=== PATIENT | female | born 1990 | race Caucasian/White ===

== ENCOUNTER 2017-05-05 00:12 | Emergency (ER) | payer MEDICAID ==
[~2017-05-05] VITALS: Ht 149.9 cm; Wt 39.0 kg
[~2017-05-05 00:12] MED LIST: AZAT50 PO; CIPR500T4 PO; ELOC0.1O TOP; HYDR200T42 PO; PRED10 PO; PRED5TAB PO; ROBA750T3 PO; VENTAER INH
[2017-05-05 00:20] VITALS: BP 129/77; PULSE 84; RESP 16; TEMP 97.9; O2SAT 98
[2017-05-05] MEDS ORDERED: PLAQ200T PO (00:42)
[2017-05-05] MEDS ORDERED: PRED10 PO (00:42)
[2017-05-05] MEDS ORDERED: AZAT50 PO (00:42)
--- NOTE | 2017-05-05 01:03 | PD ---
HPI Chief Complaint: Injury Time Seen by Provider: 00:48 Travel History International Travel<30 days: No Contact w/Intl Traveler<30days: No Traveled to known affect area: No History of Present Illness HPI 26yo F with discoid lupus here with c/o right second digit pain for about 2 days. States she gets cellulitis very often. Denies any fever, chest pain, sob , n/v, abdominal pain, focal weakness or numbness. States she has history of MRSA. She currently does not have a manager child in the area but has a final rail cutter and primary care physician. Denies any trauma. PFSH Past Medical History Asthma: No Autoimmune Disease: Yes Blood Disorders: No Anxiety: No Depression: No Cardiovascular Problems: No Chest Pain: No Diminished Hearing: No Endocrine: No Gastrointestinal Disorders: No Genitourinary: No Immune Disorder: Yes Musculoskeletal: No Neurologic: No Psychiatric: No Reproductive: Yes (never has had period) Respiratory: Yes (on occassion) Immunizations Current: No Sleep Apnea: No ?: Not Past Surgical History Abdominal Surgery: No Cardiac Surgery: No Ear Surgery: No Endocrine Surgery: No Eye Surgery: No Genitourinary Surgery: No Gynecologic Surgery: No Neurologic Surgery: No Oral Surgery: No Thoracic Surgery: No Social History Alcohol Use: Yes Tobacco Use: No Substance Use: No Allergies-Medications (Allergen,Severity, Reaction): Coded Allergies: sulfamethoxazole (Unverified Allergy, Intermediate, HEADACHE ITCHING, 03/06) trimethoprim (Unverified Allergy, Intermediate, HEADACHE ITCHING, 03/06/17) Reported Meds & Prescriptions Reported Meds & Active Scripts Active Lortab (Hydrocodone-Acetaminophen) 5-325 Mg Tab 1 Tab PO Q6H PRN Clindamycin (Clindamycin HCl) 300 Mg Cap 300 Mg PO TID 7 Days Reported Plaquenil (Hydroxychloroquine Sulfate) 200 Mg Tab 200 Mg PO DAILY Take with food Prednisone 10 Mg Tab 10 Mg PO DAILY Azathioprine 50 Mg Tab 50 Mg PO DAILY Hazardous agent use appropriate precautions for handling and disposal. Review of Systems Except as stated in HPI: all other systems reviewed are Neg Physical Exam Narrative GENERAL: 26yo F in mild distress. SKIN: Focused skin assessment warm/dry. HEAD: Atraumatic. Normocephalic. EYES: Pupils equal and round. No scleral icterus. No injection or drainage. ENT: No nasal bleeding or discharge. Mucous membranes pink and moist. NECK: Trachea midline. No JVD. CARDIOVASCULAR: Regular rate and rhythm. No murmur appreciated. RESPIRATORY: No accessory muscle use. Clear to auscultation. Breath sounds equal bilaterally. GASTROINTESTINAL: Abdomen soft, non-tender, nondistended. MUSCULOSKELETAL: Right hand: Mild redness and skin desquamation in smith aspect of distal phalanx. Mild warmth to touch. Very small fluctuance. FROM in all joints. Distal pulses intact. NEUROLOGICAL: Awake and alert. No obvious cranial nerve deficits. Motor grossly within normal limits. Normal speech. PSYCHIATRIC: Appropriate mood and affect; insight and judgment normal. Data Data Last Documented VS Vital Signs Date Time Temp Pulse Resp B/P (MAP) Pulse Ox O2 Delivery O2 Flow Rate FiO2 05/05/17 03:07 88 16 145/72 (96) 100 05/05/17 00:30 Room Air 05/05/17 00:20 97.9 Orders Orders Acetamin-Hydrocod 325-5 Mg ([place] 5-325 (05/05/17 01:15) Clindamycin (Cleocin) (05/05/17 01:15) Lidocaine 1% Inj (50 Ml) (Xylocaine 1% I (05/05/17 01:45) Acetamin-Hydrocod 325-5 Mg ([place] 5-325 (05/05/17 02:30) Ed Discharge Order (05/05/17 02:56) [facility] Medical Decision Making Medical Screen Exam Complete: Yes Emergency Medical Condition: Yes Differential Diagnosis [place] vs. cellulitis Narrative Course 26yo F with discoid lupus here with tenderness and swelling in right second distal phalanx. There is a very small fluctuance so will attempt I&D. However , no pus expressed. Pt given antibiotic and pain medication. Instructed pt to follow up with PMD for wound check. Return precautions given. Procedures Procedure Narrative INCISION AND DRAINAGE OF ABSCESS: The area was prepped and was sterilely draped. Digital block was performed using 1 % Xylocaine with a total number 3 mL was used to anesthetize the area properly. A number 11 scalpel was used to make a 0.5 -cm incision across the area of the abscess. No pus expressed. Irrigated with normal saline. Wrapped with petroleum gauze and then sterile gauze. Diagnosis Primary Impression: Cellulitis Qualified Codes: L03.011 - Cellulitis of right finger Patient Instructions: General Instructions Departure Forms: Tests/Procedures Additional Instructions: Please follow up with your primary care physician in 1-2 days. Return to the ED if symptoms worsen. Med/Other Pt SpecificInfo: Prescription(s) given Scripts Hydrocodone-Acetaminophen (Lortab) 5-325 Mg Tab 1 TAB PO Q6H Y for PAIN, #10 TAB 0 Refills Prov: Silvia Maloney DO 05/05/17 Clindamycin (Clindamycin) 300 Mg Cap 300 MG PO TID for Infection for 7 Days, CAP 0 Refills Prov: Silvia Maloney DO 05/05/17 Disposition: 01 DISCHARGE HOME Condition: Stable Silvia Maloney DO May 05, 2017 01:03
[2017-05-05] MEDS ORDERED: CLINDAMYCIN 150 MG CAP PO ONE (01:15)
[2017-05-05] MEDS ORDERED: ACETAMINOPHEN/HYDROcodone 325 MG/5 MG TAB PO ONE ×2 (01:15→02:30)
[2017-05-05] MEDS ORDERED: LIDOCAINE HCL 1% 50 ML VIAL INFIL ONE (01:45)
[2017-05-05] MEDS ORDERED: HYDR-3533 PO (02:56)
[2017-05-05] MEDS ORDERED: CLIN1CAP6 PO (02:56)
[2017-05-05 03:07] VITALS: BP 145/72
== END 2017-05-05 03:17 | disposition home or self-care (01) ==
LOC: PHED 00:12
DX: L03.011 Cellulitis of right finger (principal); L93.0 Discoid lupus erythematosus; Z86.14 Personal history of Methicillin resistant Staphylococcus aureus infection
CPT/HCPCS: 26010

== ENCOUNTER 2017-06-21 04:21 | Emergency (ER) | payer MEDICAID ==
[~2017-06-21] VITALS: Ht 149.9 cm; Wt 36.2 kg
[~2017-06-21 04:21] MED LIST changes: -CIPR500T4 PO; +CLIN300C5 PO; -ELOC0.1O TOP; +HYDR-3533 PO; -HYDR200T42 PO; +PLAQ200T PO; -PRED5TAB PO; -ROBA750T3 PO; -VENTAER INH
[2017-06-21 04:28] VITALS: BP 101/72; PULSE 88; RESP 18; TEMP 98.2; O2SAT 97
--- NOTE | 2017-06-21 05:03 | PD ---
HPI Chief Complaint: Skin Problem Time Seen by Provider: 04:44 Travel History International Travel<30 days: No Contact w/Intl Traveler<30days: No Traveled to known affect area: No History of Present Illness HPI 26-year-old female presents to the emergency department for complaint of recurrent skin infection affecting the right index finger left index finger and right fifth digit. Patient also notices some redness and tenderness of the right foot that has improved of the past few patient reports yesterday she had a temperature elevation of 100.3 degrees Fahrenheit. Patient is not diabetic. Patient reports she is on immunosuppressive therapy prescribed by her primary care provider for diagnosis of lupus. She does not voice other concerns or complaints. Patient denies any injury. Patient was recently seen in the emergency department with clindamycin. Patient states she only took one tablet once a day for approximately 7 days and then was out of medication. Review medical records indicates patient was given prescription for clindamycin 300 mg one dose 3 times daily for 7 days. Patient denies other concerns or complaints. Has had eight fingers infected with MRSA and treated at [facility] a few years ago. [facility] Past Medical History Narrative Medical Lupus; occasional alcohol use; nursing notes reviewed Asthma: No Autoimmune Disease: Yes Blood Disorders: No Anxiety: No Depression: No Cardiovascular Problems: No Chest Pain: No Diminished Hearing: No Endocrine: No Gastrointestinal Disorders: No Genitourinary: No Immune Disorder: Yes Musculoskeletal: No Neurologic: No Psychiatric: No Reproductive: Yes (never has had period) Respiratory: Yes (on occassion) Immunizations Current: No Sleep Apnea: No ?: Not Past Surgical History Abdominal Surgery: No Cardiac Surgery: No Ear Surgery: No Endocrine Surgery: No Eye Surgery: No Genitourinary Surgery: No Gynecologic Surgery: No Neurologic Surgery: No Oral Surgery: No Thoracic Surgery: No Social History Alcohol Use: Yes Tobacco Use: No Substance Use: No Allergies-Medications (Allergen,Severity, Reaction): Coded Allergies: sulfamethoxazole (Unverified Allergy, Intermediate, HEADACHE ITCHING, 03/06) trimethoprim (Unverified Allergy, Intermediate, HEADACHE ITCHING, 03/06/17) Reported Meds & Prescriptions Reported Meds & Active Scripts Active Bactroban Topical (Mupirocin) 22 Gm Cream 1 Applic TOPICAL TID Percocet (Oxycodone-Acetaminophen) 5-325 mg Tab 1 Tab PO Q6H PRN Clindamycin (Clindamycin HCl) 150 Mg Cap 300 Mg PO Q8HR 10 Days Reported Plaquenil (Hydroxychloroquine Sulfate) 200 Mg Tab 200 Mg PO DAILY Take with food Prednisone 10 Mg Tab 10 Mg PO DAILY Azathioprine 50 Mg Tab 50 Mg PO DAILY Hazardous agent use appropriate precautions for handling and disposal. Review of Systems Except as stated in HPI: all other systems reviewed are Neg General / Constitutional: No: Fever, Chills HENT: No: Congestion Cardiovascular: No: Chest Pain or Discomfort Respiratory: No: Shortness of Breath Gastrointestinal: No: Abdominal Pain Genitourinary: No: Flank Pain Musculoskeletal: Positive: Pain (right 2nd/5th digitis, right foot, left 2nd finger) Skin: Positive Rash (lupus) Neurologic: No: Weakness Psychiatric: No: Anxiety Hematologic/Lymphatic: No: Easy Bruising Physical Exam Narrative GENERAL: Thin female in no acute distress no respiratory distress. SKIN: Warm and dry. Confluent erythematous rash. Attention right second and fifth digits as well as left second digit and right foot dorsal aspect. Patient has erythema with tenderness without fluctuance. Patient does have deformity of the right fifth digit consistent with extensor tendon injury on opposed flexion. Capillary refill is brisk and less than 2 seconds. Sensation intact. Decreased range of motion secondary to scar tissue and discomfort. HEAD: Normocephalic. EYES: No scleral icterus. No injection or drainage. NECK: Supple, trachea midline. No JVD or lymphadenopathy. CARDIOVASCULAR: Regular rate and rhythm without murmurs, gallops, or rubs. RESPIRATORY: Breath sounds equal bilaterally. No accessory muscle use. GASTROINTESTINAL: Abdomen soft, non-tender, nondistended. MUSCULOSKELETAL: No cyanosis, or edema. . Data Data Last Documented VS Vital Signs Date Time Temp Pulse Resp B/P (MAP) Pulse Ox O2 Delivery O2 Flow Rate FiO2 06/21/17 04:28 98.2 88 18 101/72 (82) 97 Orders Orders Finger ([id number]) (06/21/17 ) Finger (Aod7alr) (06/21/17 ) Foot, Complete ([id number]) (06/21/17 ) Wound Culture And Gram Stain (06/21/17 05:10) Clindamycin (Cleocin) (06/21/17 05:30) Oxycodone-Acetamin 5-325 Mg (Percocet (06/21/17 05:30) Ed Discharge Order (06/21/17 06:13) MDM Medical Decision Making Medical Screen Exam Complete: Yes Emergency Medical Condition: Yes Medical Record Reviewed: Yes Interpretation(s) Last Impressions Finger X-Ray 06/21/17 0000 Signed Impressions: Service Date/Time: May 04:59 - CONCLUSION: 1. Absence of the distal aspect of the second and third distal phalanges. This is can be secondary to acroosteolysis. This can be seen with collagen vascular disease and vasculitis. It is most commonly seen with scleroderma. Raynaud's disease and lupus could have this appearance. 2. The fourth and fifth digits are held in flexion. 3. Skeletal immaturity with reflecting open in this 26-year-old patient. Blake Holliday MD Finger X-Ray 06/21/17 0000 Signed Impressions: Service Date/Time: May 04:59 - CONCLUSION: 1. Absence of the distal aspect of the second digit at the distal phalanx. 2. Thinning of the soft tissues of the distal third through fifth digits. 3. These processes could be secondary to inflammatory change and/or vasculitis. They can be seen with collagen vascular disease. Calcifications within the hand could be related to vascular structures. 4. The distal growth plates of the distal radius and ulna are still open. At the patient's age, these should be closed. This is consistent with delayed skeletal maturation. Blake Holliday MD Vital Signs Date Time Temp Pulse Resp B/P (MAP) Pulse Ox O2 Delivery O2 Flow Rate FiO2 06/21/17 04:28 98.2 88 18 101/72 (82) 97 Right Foot XR: FINDINGS: There is absence of the distal tuft of the second distal phalanx. There appear to be some minimal changes at the distal tuft of the third digit with soft tissue calcification. 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 There are soft tissue calcifications seen at the distal lower leg adjacent to the tibia. 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 Soft tissue calcifications at the third phalanx and adjacent to the distal tibia. 3. Chronic deformity at the second metatarsal head. 4. These findings can be seen with collagen vascular disease. Blake Holliday MD on June 21, 2017 at 5:59 Board Certified Radiologist. This report was verified electronically. Differential Diagnosis Cellulitis, exacerbation of dermatitis, osteomyelitis, fracture, abscess, puncture wound, retained foreign body, vasculitis Narrative Course Imaging studies ordered of the right and left second digits and the foot patient with contracture has been present for a while states she has to be seen by specialist for repair. Diagnosis Primary Impression: Cellulitis of finger, left Additional Impressions: Cellulitis of finger, right Cellulitis of foot, right Referrals: Primary Care Physician 1 day Patient Instructions: General Instructions Departure Forms: Tests/Procedures, Work Release Special Instructions: no work x 2 days Additional Instructions: Complete course of antibiotic as prescribed Take pain medication as prescribed as needed Take ibuprofen as prescribed as needed as tolerated May take 400 mg as often as every 6 hours Monitor temperature every 4 hours with vomiting take acetaminophen/Tylenol as needed for fever 100.4F or greater Follow-up with your primary care provider call office in a.m. to schedule follow -up appointment this week Return to the emergency department for pain fever vomiting or any concerns Med/Other Pt SpecificInfo: Prescription(s) given Scripts Mupirocin Topical (Bactroban Topical) 22 Gm Cream 1 APPLIC TOPICAL TID for Mgmt Bacterial Infection, #1 TUBE 0 Refills Prov: Sheri Arthur MD 06/21/17 Oxycodone-Acetaminophen (Percocet) 5-325 mg Tab 1 TAB PO Q6H Y for PAIN, #7 TAB 0 Refills Prov: Sheri Arthur MD 06/21/17 Clindamycin (Clindamycin) 150 Mg Cap 300 MG PO Q8HR for Infection for 10 Days, CAP 0 Refills Prov: Sheri Arthur MD 06/21/17 Disposition: 01 DISCHARGE HOME Condition: Stable Sheri Arthur MD Jun 21, 2017 05:03
[2017-06-21] MEDS ORDERED: oxyCODONE/ACETAMINOPHEN 5 MG/325 MG TAB PO ONE (05:30)
[2017-06-21] MEDS ORDERED: CLINDAMYCIN 150 MG CAP PO ONE (05:30)
--- NOTE | 2017-06-21 05:56 | RADRPT ---
EXAM DATE/TIME: 06/21/2017 04:59 [facility] COMPARISON: HAND, LEFT, ONE VIEW, March 06, 2007, 15:30. INDICATIONS : Left hand, second digit rash and inflammation. MEDICAL HISTORY : Lupus. SURGICAL HISTORY : None. ENCOUNTER: Initial ACUITY: 1 day PAIN SCORE: 6/10 LOCATION: Left hand, second digit. FINDINGS: There is absence of the distal three quarters of the second distal phalanx. There also appears to be soft tissue thinning of the distal fingertips at the third through fifth digits. There are soft tissu e calcifications seen within the hand. There is a small calcific density at the distal tip of the mushtaq mb. The epiphyseal growth plates at the radius and ulna are still open. CONCLUSION: 1. Absence of the distal aspect of the second digit at the distal phalanx. 2. Thinning of the soft tissues of the distal third through fifth digits. 3. These processes could be secondary to inflammatory change and/or vasculitis. They can be seen with collagen vascular disease. Calcifications within the hand could be related to vascular structures. 4. The distal growth plates of the distal radius and ulna are still open. At the patient's age, these should be closed. This is consistent with delayed skeletal maturation. Blake Holliday MD on June 21, 2017 at 5:49 Board Certified Radiologist. This report was verified electronically.
--- NOTE | 2017-06-21 06:01 | RADRPT ---
EXAM DATE/TIME: 06/21/2017 04:59 [facility] COMPARISON: No previous studies available for comparison. INDICATIONS : Right hand, second digit rash and inflammation. MEDICAL HISTORY : Lupus. Right hand, fifth digit contraction. SURGICAL HISTORY : Prior surgery to right hand, second digit. ENCOUNTER: Initial ACUITY: 1 day PAIN SCORE: 6/10 LOCATION: Right hand, second digit. FINDINGS: There is absence of the distal one half of the second distal phalanx and the distal quarter of the th ird distal phalanx. The fourth and fifth digits are held in flexion with flexion be more prominent at the fifth digit. The bones appear osteopenic. The growth plates are still evident. CONCLUSION: 1. Absence of the distal aspect of the second and third distal phalanges. This is can be secondary to acroosteolysis. This can be seen with collagen vascular disease and vasculitis. It is most commonly seen with scleroderma. Raynaud's disease and lupus could have this appearance. 2. The fourth and fifth digits are held in flexion. 3. Skeletal immaturity with reflecting open in this 26-year-old patient. Blake Holliday MD on June 21, 2017 at 5:55 Board Certified Radiologist. This report was verified electronically.
--- NOTE | 2017-06-21 06:05 | RADRPT ---
EXAM DATE/TIME: 06/21/2017 04:59 [facility] COMPARISON: No previous studies available for comparison. INDICATIONS : Right foot pain and inflammation. MEDICAL HISTORY : Lupus. SURGICAL HISTORY : None. ENCOUNTER: Initial ACUITY: 1 day PAIN SCORE: 6/10 LOCATION: Right lateral foot. FINDINGS: There is absence of the distal tuft of the second distal phalanx. There appear to be some minimal chencho nges at the distal tuft of the third digit with soft tissue calcification. 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 There are soft tissue calcifications seen at the distal lower leg adjacent to the tibia. 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 Soft tissue calcifications at the third phalanx and adjacent to the distal tibia. 3. Chronic deformity at the second metatarsal head. 4. These findings can be seen with collagen vascular disease. Blake Holliday MD on June 21, 2017 at 5:59 Board Certified Radiologist. This report was verified electronically.
[2017-06-21] MEDS ORDERED: PERC5TAB12 PO (06:10)
[2017-06-21] MEDS ORDERED: CLIN150C14 PO (06:10)
[2017-06-21] MEDS ORDERED: MUPI2%T TOPICAL (06:13)
[2017-06-21 06:33] VITALS: BP 110/66
== END 2017-06-21 06:35 | disposition home or self-care (01) ==
LOC: PHED 04:21
DX: L03.011 Cellulitis of right finger (principal); L03.012 Cellulitis of left finger; L03.115 Cellulitis of right lower limb; M32.9 Systemic lupus erythematosus, unspecified
CPT/HCPCS: 73140; 73630; 87070; 99284

== ENCOUNTER 2017-08-23 23:35 | Emergency (ER) | payer MEDICAID ==
[~2017-08-23 23:35] MED LIST changes: +CLIN150C14 PO; -CLIN300C5 PO; -HYDR-3533 PO; +MUPI2%T TOPICAL; +PERC5TAB12 PO
[2017-08-24 00:21] VITALS: BP 142/80; PULSE 98; RESP 16; TEMP 99.8; O2SAT 98
[2017-08-24] MEDS ORDERED: PENT400T PO (00:40)
[2017-08-24] MEDS ORDERED: DOXY100C PO (02:18)
--- NOTE | 2017-08-24 02:18 | PD ---
HPI Chief Complaint: Skin Problem Time Seen by Provider: 02:10 Travel History International Travel<30 days: No Contact w/Intl Traveler<30days: No Traveled to known affect area: No History of Present Illness HPI GENERAL: The patient is a 26-year-old female that has a history of lupus with Raynaud's syndrome. She has a chronic rash on her toes with ulcers. Her left foot as become painful in the last 7 days and has noted redness on the left fourth and fifth toes. The patient was in [place] recently where she walked around a lot with hard, heavy shoes on. PFSH Past Medical History Asthma: No Autoimmune Disease: Yes Blood Disorders: No Anxiety: No Depression: No Cardiovascular Problems: No Chest Pain: No Diminished Hearing: No Endocrine: No Gastrointestinal Disorders: No Genitourinary: No Immune Disorder: Yes (lupus, RA) Implanted Vascular Access Dvce: No Musculoskeletal: No Neurologic: No Psychiatric: No Reproductive: Yes (never has had period) Respiratory: Yes (on occassion) Immunizations Current: No Sleep Apnea: No ?: Not Past Surgical History Abdominal Surgery: No Cardiac Surgery: No Ear Surgery: No Endocrine Surgery: No Eye Surgery: No Genitourinary Surgery: No Gynecologic Surgery: No Neurologic Surgery: No Oral Surgery: No Thoracic Surgery: No Social History Alcohol Use: Yes Tobacco Use: No Substance Use: No Allergies-Medications (Allergen,Severity, Reaction): Coded Allergies: sulfamethoxazole (Unverified Allergy, Intermediate, HEADACHE ITCHING, ) trimethoprim (Unverified Allergy, Intermediate, HEADACHE ITCHING, 08/24/17) Reported Meds & Prescriptions Reported Meds & Active Scripts Active Percocet (Oxycodone-Acetaminophen) 5-325 mg Tab 1 Tab PO Q6H PRN Reported Pentoxifylline ER (Pentoxifylline) 400 Mg Tab 400 Mg PO TID Plaquenil (Hydroxychloroquine Sulfate) 200 Mg Tab 200 Mg PO BID Take with food Prednisone 10 Mg Tab 30 Mg PO EVERY OTHER DAY Review of Systems Except as stated in HPI: all other systems reviewed are Neg Physical Exam Narrative GEN: The patient is alert, oriented 3 in minimal apparent distress with her left fourth and fifth toe discomfort. Her vital signs are normal. SKIN: Focused skin assessment warm/dry. The patient has squamous ulcerations on the tip of most of her toes. This is likely from lupus. These are not tender at this time but the fourth and fifth toes show evidence of infection. The infection likely started from the break in the skin at the tip of her toes. HEAD: Atraumatic. Normocephalic. EYES: Pupils equal and round. No scleral icterus. No injection or drainage. ENT: No nasal bleeding or discharge. Mucous membranes pink and moist. NECK: Trachea midline. No JVD. CARDIOVASCULAR: Regular rate and rhythm. No murmur appreciated. RESPIRATORY: No accessory muscle use. Clear to auscultation. Breath sounds equal bilaterally. GASTROINTESTINAL: Abdomen soft, non-tender, nondistended. Hepatic and splenic margins not palpable. MUSCULOSKELETAL: No obvious deformities. No clubbing. No cyanosis. No edema. NEUROLOGICAL: Awake and alert. No obvious cranial nerve deficits. Motor grossly within normal limits. Normal speech. PSYCHIATRIC: Appropriate mood and affect; insight and judgment normal. Data Data Last Documented VS Vital Signs Date Time Temp Pulse Resp B/P (MAP) Pulse Ox O2 Delivery O2 Flow Rate FiO2 08/24/17 00:21 99.8 98 16 142/80 (100) 98 MDM Medical Decision Making Medical Screen Exam Complete: Yes Emergency Medical Condition: Yes Medical Record Reviewed: Yes Differential Diagnosis Raynaud's syndrome ulcerations, infected ulcerations, cellulitis, Raynaud's gangrene Narrative Course The patient appears to have infected ulcerations. The ulcerations likely started from her Raynaud's syndrome and represent these type of ulcerations. The trip to [place] undoubtedly made things worse with her increased walking with hard shoes. Plan: The patient is allergic to sulfa drugs and is given doxycycline 500 mg twice daily for 10 days. She is to follow-up with a engineering production liaison. She should soak her foot 3 times daily in warm water. Diagnosis Primary Impression: Infected abrasion of toe of left foot Additional Impression: Raynauds disease Additional Instructions: As we discussed, it is necessary to soak your feet 3 times daily in warm water. Avoid hard shoes and avoid excessive walking. Follow-up with a engineering production liaison as soon as possible. Med/Other Pt SpecificInfo: Prescription(s) given Scripts Doxycycline Hyclate (Doxycycline Hyclate) 100 Mg Cap 100 MG PO BID for Infection, #20 CAP 0 Refills Prov: Aric Cormier MD 08/24/17 Disposition: 01 DISCHARGE HOME Condition: Stable Aric Cormier MD Aug 24, 2017 02:18
[2017-08-24 02:27] VITALS: BP 101/58; TEMP 99.5
[2017-08-24] MEDS ORDERED: DOXYCYCLINE HYCLATE 100 MG CAP PO ONE (02:30)
[2017-08-24] MEDS ORDERED: PERC5TAB12 PO (02:32)
== END 2017-08-24 02:43 | disposition home or self-care (01) ==
LOC: PHED 23:35
DX: L08.9 Local infection of the skin and subcutaneous tissue, unspecified (principal); I73.00 Raynaud's syndrome without gangrene; M32.9 Systemic lupus erythematosus, unspecified; M06.9 Rheumatoid arthritis, unspecified; Z88.2 Allergy status to sulfonamides
CPT/HCPCS: 99283

== ENCOUNTER 2017-11-17 18:07 | Inpatient (IN) | payer MEDICAID ==
[~2017-11-17] VITALS: Ht 149.9 cm; Wt 41.2 kg
[~2017-11-17 18:07] MED LIST changes: -AZAT50 PO; -CLIN150C14 PO; +DOXY100C PO; -MUPI2%T TOPICAL; +PENT400T PO
[2017-11-17 18:13] VITALS: BP 131/79; PULSE 138; RESP 18; TEMP 102; O2SAT 93
[2017-11-17] MEDS ORDERED: ONDANSETRON HCL 4 MG/2 ML VIAL IV PUSH ONE (18:45)
[2017-11-17] MEDS ORDERED: ACETAMINOPHEN 325 MG TAB PO ONE (18:45)
[2017-11-17] MEDS ORDERED: SODIUM CHLOR 0.9% 1000 ML INJ 1,000 ML IV ONE (18:45)
--- NOTE | 2017-11-17 18:46 | PD ---
HPI . Chest congestion and conjunctivitis Chief Complaint: Cold / Flu Symptoms Time Seen by Provider: 18:31 Travel History International Travel<30 days: No Contact w/Intl Traveler<30days: No Traveled to known affect area: No History of Present Illness HPI This patient presents with the chief complaint of conjunctivitis of the right eye, chest congestion and fever. Onset was today. She was treated for bronchitis starting about 2 weeks ago with amoxicillin. She did develop conjunctivitis after the initiation of the amoxicillin which was treated with Neosporin eyedrops. Her symptoms all markedly improved. She has completed her treatment. Her symptoms recurred today. She took a Tylenol at 2 for fever but has not taken anything since. She states that her symptoms today are worse than her symptoms were 2 weeks ago. 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 [facility] Past Medical History Asthma: No Autoimmune Disease: Yes Blood Disorders: No Anxiety: No Depression: No Cardiovascular Problems: No Chest Pain: No Diminished Hearing: No Endocrine: No Gastrointestinal Disorders: No Genitourinary: No Immune Disorder: Yes (lupus, RA) Implanted Vascular Access Dvce: No Musculoskeletal: No Neurologic: No Psychiatric: No Reproductive: Yes (never has had period) Respiratory: Yes (on occassion) Immunizations Current: No Sleep Apnea: No ?: Not Past Surgical History Abdominal Surgery: No Cardiac Surgery: No Ear Surgery: No Endocrine Surgery: No Eye Surgery: No Genitourinary Surgery: No Gynecologic Surgery: No Neurologic Surgery: No Oral Surgery: No Thoracic Surgery: No Social History Alcohol Use: Yes Tobacco Use: No Substance Use: No Allergies-Medications (Allergen,Severity, Reaction): Coded Allergies: sulfamethoxazole (Unverified Allergy, Intermediate, HEADACHE ITCHING, 11/17) trimethoprim (Unverified Allergy, Intermediate, HEADACHE ITCHING, 11/17/17) vancomycin (Verified Allergy, Mild, Itching, 11/17/17) Reported Meds & Prescriptions Reported Meds & Active Scripts Active Reported Nicardipine (Nicardipine HCl) 20 Mg Cap 10 Mg PO DAILY Pentoxifylline ER (Pentoxifylline) 400 Mg Tab 400 Mg PO TID Plaquenil (Hydroxychloroquine Sulfate) 200 Mg Tab 200 Mg PO BID Take with food Prednisone 10 Mg Tab 30 Mg PO EVERY OTHER DAY Review of Systems Except as stated in HPI: all other systems reviewed are Neg General / Constitutional: Positive: Fever, Chills Eyes: Positive: Drainage, Redness Cardiovascular: Positive: Chest Pain or Discomfort Respiratory: Positive: Cough Musculoskeletal: Positive: Myalgias, Arthralgias Skin: Positive Rash (Chronic rash as a result of her lupus) Hematologic/Lymphatic: Positive: Other (Immunocompromised as the result of her underlying medical condition) Physical Exam Narrative GENERAL: This is a thin, chronically ill-appearing woman. SKIN: warm/dry. Diffuse, scaly red rash. HEAD: Normocephalic. Atraumatic. EYES: Pupils equal and round. No scleral icterus. No injection or drainage. ENT: The tip of her nose has apparently necrosis off. NECK: Trachea midline. Full range of motion without pain.. CARDIOVASCULAR: Sinus tachycardia at about 130. RESPIRATORY: Rhonchi in the right base. Wet sounding cough. MUSCULOSKELETAL: No obvious deformities. NEUROLOGICAL: Awake and alert. No obvious cranial nerve deficits. Motor grossly within normal limits. Normal speech. PSYCHIATRIC: Appropriate mood and affect; insight and judgment normal. Data Data Last Documented VS Vital Signs Date Time Temp Pulse Resp B/P (MAP) Pulse Ox O2 Delivery O2 Flow Rate FiO2 11/17/17 19:52 114 20 96 Room Air 11/17/17 18:13 102.0 131/79 (96) Orders Orders Sepsis Workup Initiated (11/17/17 ) Complete Blood Count With Diff (11/17/17 18:32) Comprehensive Metabolic Panel (11/17/17 18:32) Lactic Acid Sepsis Protocol (11/17/17 18:32) Urinalysis - C+S If Indicated (11/17/17 18:32) Influenzae A/B Antigen (11/17/17 18:32) Blood Culture (11/17/17 18:32) Chest, Single Ap (11/17/17 18:32) Blood Glucose (11/17/17 18:32) Ecg Monitoring (11/17/17 18:32) Iv Access Insert/Monitor (11/17/17 18:32) Oximetry (11/17/17 18:32) Oxygen Administration (11/17/17 18:32) Acetaminophen (Tylenol) (11/17/17 18:45) Ondansetron Inj (Zofran Inj) (11/17/17 18:45) Sodium Chlor 0.9% 1000 Ml Inj (Ns 1000 M (11/17/17 18:45) Influenzae A/B Antigen (11/17/17 19:33) Electrocardiogram (11/17/17 19:33) Ct Pulmonary Angiogram (11/17/17 19:33) Beta Hcg (Quant/Titer) (11/17/17 19:33) Arterial Blood Gas (Abg) (11/17/17 19:36) Ed Urine Pregnancytest Poc (11/17/17 19:38) Oxycodone-Acetamin 7.5-325 Mg (Percocet (11/17/17 20:00) Labs Laboratory Tests Test 11/17/17 19:15 White Blood Count 15.3 TH/MM3 Red Blood Count 3.93 MIL/MM3 Hemoglobin 11.5 GM/DL Hematocrit 32.7 % Mean Corpuscular Volume 83.2 FL Mean Corpuscular Hemoglobin 29.3 PG Mean Corpuscular Hemoglobin Concent 35.2 % Red Cell Distribution Width 14.4 % Platelet Count 267 TH/MM3 Mean Platelet Volume 8.3 FL Neutrophils (%) (Auto) 74.6 % Lymphocytes (%) (Auto) 15.5 % Monocytes (%) (Auto) 9.6 % Eosinophils (%) (Auto) 0.1 % Basophils (%) (Auto) 0.2 % Neutrophils # (Auto) 11.4 TH/MM3 Lymphocytes # (Auto) 2.4 TH/MM3 Monocytes # (Auto) 1.5 TH/MM3 Eosinophils # (Auto) 0.0 TH/MM3 Basophils # (Auto) 0.0 TH/MM3 CBC Comment DIFF FINAL Differential Comment Lactic Acid Level 1.4 mmol/L [facility] Medical Decision Making Medical Screen Exam Complete: Yes Emergency Medical Condition: Yes Differential Diagnosis Differential diagnosis of fever includes but is not limited to viral illness, strep throat, otitis media, pneumonia, sepsis, UTI Narrative Course This is a patient with SLE and Raynaud's who presents with fever, tachycardia, cough and conjunctivitis. Septic workup is in process. Her care is being turned over to the oncoming provider at 7 PM. Sepsis Criteria SIRS Criteria (2 or more): Temp > 100.9 or < 96.8, Heart rate over 90 Criteria Outcome: Meets SIRS criteria Diagnosis Primary Impression: SIRS (systemic inflammatory response syndrome) Condition: Stable Tammy Thakkar MD Nov 17, 2017 18:46
[2017-11-17] MEDS ORDERED: NICA20CA PO (18:47)
--- NOTE | 2017-11-17 19:23 | RADRPT ---
EXAM DATE/TIME: 11/17/2017 19:05 [facility] COMPARISON: No previous studies available for comparison. INDICATIONS : Cough. MEDICAL HISTORY : Lupus. SURGICAL HISTORY : None. ENCOUNTER: Initial ACUITY: 2 weeks PAIN SCORE: 7/10 LOCATION: Bilateral chest FINDINGS: A single view of the chest demonstrates the lungs to be symmetrically aerated without evidence of mas s, infiltrate or effusion. The cardiomediastinal contours are unremarkable. Osseous structures are intact. CONCLUSION: No acute disease. Terrence Day MD on November 17, 2017 at 19:20 Board Certified Radiologist. This report was verified electronically.
[2017-11-17] MEDS ORDERED: ACETAMINOPHEN 500 MG CPLT PO ONE (19:30)
[2017-11-17 19:31] LABS: AUTOMATED NEUTROPHIL # 11.4 TH/MM3 (1.8-7.7); BASOPHIL % 0.2 % (0.0-2.0); EOSINOPHIL % 0.1 % (0.0-4.0); HEMATOCRIT 32.7 % (35.0-46.0); HEMOGLOBIN 11.5 GM/DL (11.6-15.3); LYMPH % 15.5 % (9.0-44.0); LYMPHOCYTE # 2.4 TH/MM3 (1.0-4.8); MEAN CELL VOLUME 83.2 FL (80.0-100.0); MEAN CORPUSCULAR HEMOGLOBIN 29.3 PG (27.0-34.0); MEAN CORPUSCULAR HGB CONC 35.2 % (32.0-36.0); MEAN PLATELET VOLUME 8.3 FL (7.0-11.0); MONO % 9.6 % (0.0-8.0); MONOCYTE # 1.5 TH/MM3 (0-0.9); NEUT % 74.6 % (16.0-70.0); PLATELET COUNT 267 TH/MM3 (150-450); RED BLOOD COUNT 3.93 MIL/MM3 (4.00-5.30); RED CELL DISTRIBUTION WIDTH 14.4 % (11.6-17.2); WHITE BLOOD COUNT 15.3 TH/MM3 (4.0-11.0)
--- NOTE | 2017-11-17 19:49 | PD ---
Physical Exam Time Seen by Provider: 19:48 Narrative The patient was transferred to [place] by Dr. Thakkar. The patient refused the Tylenol prescribed to her and wanted [place] or something stronger. Data Data Last Documented VS Vital Signs Date Time Temp Pulse Resp B/P (MAP) Pulse Ox O2 Delivery O2 Flow Rate FiO2 11/17/17 21:09 20 11/17/17 21:08 107 97 Room Air 11/17/17 20:13 128/87 (101) 11/17/17 18:13 102.0 Orders Orders Sepsis Workup Initiated (11/17/17 ) Complete Blood Count With Diff (11/17/17 18:32) Comprehensive Metabolic Panel (11/17/17 18:32) Lactic Acid Sepsis Protocol (11/17/17 18:32) Urinalysis - C+S If Indicated (11/17/17 18:32) Influenzae A/B Antigen (11/17/17 18:32) Blood Culture (11/17/17 18:32) Chest, Single Ap (11/17/17 18:32) Blood Glucose (11/17/17 18:32) Ecg Monitoring (11/17/17 18:32) Iv Access Insert/Monitor (11/17/17 18:32) Oximetry (11/17/17 18:32) Oxygen Administration (11/17/17 18:32) Acetaminophen (Tylenol) (11/17/17 18:45) Ondansetron Inj (Zofran Inj) (11/17/17 18:45) Sodium Chlor 0.9% 1000 Ml Inj (Ns 1000 M (11/17/17 18:45) Electrocardiogram (11/17/17 19:33) Ct Pulmonary Angiogram (11/17/17 19:33) Beta Hcg (Quant/Titer) (11/17/17 19:33) Arterial Blood Gas (Abg) (11/17/17 19:36) Ed Urine Pregnancytest Poc (11/17/17 19:38) Oxycodone-Acetamin 7.5-325 Mg (Percocet (11/17/17 20:00) Potassium Chloride (Kcl) (11/17/17 20:15) Sodium Chlor 0.9% 1000 Ml Inj (Ns 1000 M (11/17/17 20:30) Iohexol 350 Inj (Omnipaque 350 Inj) (11/17/17 21:03) Labs Laboratory Tests Test 11/17/17 19:15 11/17/17 19:50 11/17/17 20:30 White Blood Count 15.3 TH/MM3 Red Blood Count 3.93 MIL/MM3 Hemoglobin 11.5 GM/DL Hematocrit 32.7 % Mean Corpuscular Volume 83.2 FL Mean Corpuscular Hemoglobin 29.3 PG Mean Corpuscular Hemoglobin Concent 35.2 % Red Cell Distribution Width 14.4 % Platelet Count 267 TH/MM3 Mean Platelet Volume 8.3 FL Neutrophils (%) (Auto) 74.6 % Lymphocytes (%) (Auto) 15.5 % Monocytes (%) (Auto) 9.6 % Eosinophils (%) (Auto) 0.1 % Basophils (%) (Auto) 0.2 % Neutrophils # (Auto) 11.4 TH/MM3 Lymphocytes # (Auto) 2.4 TH/MM3 Monocytes # (Auto) 1.5 TH/MM3 Eosinophils # (Auto) 0.0 TH/MM3 Basophils # (Auto) 0.0 TH/MM3 CBC Comment DIFF FINAL Differential Comment Blood Urea Nitrogen 6 MG/DL Creatinine 0.47 MG/DL Random Glucose 83 MG/DL Total Protein 6.5 GM/DL Albumin 3.1 GM/DL Calcium Level 8.8 MG/DL Alkaline Phosphatase 150 U/L Aspartate Amino Transf (AST/SGOT) 26 U/L Alanine Aminotransferase (ALT/SGPT) 32 U/L Total Bilirubin 0.7 MG/DL Sodium Level 138 MEQ/L Potassium Level 2.8 MEQ/L Chloride Level 103 MEQ/L Carbon Dioxide Level 27.0 MEQ/L Anion Gap 8 MEQ/L Estimat Glomerular Filtration Rate 161 ML/MIN Lactic Acid Level 1.4 mmol/L Blood Gas Puncture Site LT RADIAL Blood Gas Patient Temperature 98.6 Blood Gas HCO3 27 mmol/L Blood Gas Base Excess 3.4 mmol/L Blood Gas Oxygen Saturation 93 % Arterial Blood pH 7.49 Arterial Blood Partial Pressure CO2 35 mmHG Arterial Blood Partial Pressure O2 77 mmHG Arterial Blood Oxygen Content 14.0 Vol % Arterial Blood Carboxyhemoglobin 2.1 % Arterial Blood Methemoglobin 1.2 % Blood Gas Hemoglobin 10.6 G/DL Blood Gas Inspired Oxygen 21 % Urine Color YELLOW Urine Turbidity CLEAR Urine pH 6.5 Urine Specific [place] LESS/EQUAL 1.005 Urine Protein NEG mg/dL Urine Glucose (UA) NEG mg/dL Urine Ketones NEG mg/dL Urine Occult Blood NEG Urine Nitrite NEG Urine Bilirubin NEG Urine Urobilinogen 0.2 MG/DL Urine Leukocyte Esterase TRACE Urine WBC 0-2 /hpf Urine Squamous Epithelial Cells 0-5 /hpf Microscopic Urinalysis Comment CULT NOT INDICATED MDM Medical Record Reviewed: Yes Supervised Visit with KEITH: No Interpretation(s) The CT pulmonary angiogram shows no evidence for pulmonary embolism but does show patchy infiltrates in the right upper lobe and right lower lobe. The EKG shows sinus tachycardia with a rate of [address] elevation or depression. The blood gases on room air show pH 7.49, CO2 35, PO2 77 with O2 sat 93%. The complete metabolic profile shows an albumin of 3.1, alkaline phosphatase of 150, potassium 2.8 but is otherwise unremarkable. The influenza A/B antigen is negative for flu a and flu B antigen. The lactic acid is normal. The CBC shows white count of 15,300 with a hemoglobin of 11.5 and hematocrit of 32.7 but is otherwise unremarkable. The chest x-ray was read as no acute disease. Differential Diagnosis Pneumonia, pulmonary embolus, hypoxemia, sepsis, electrolyte disorder Narrative Course The patient has a right upper lobe and right lower lobe pneumonia. She will be given Zithromax and Rocephin here. She will be admitted to the [facility] service. Physician Communication Physician Communication I discussed the patient with Dr. Sparks, the patient will be admitted to her. Diagnosis Primary Impression: SIRS (systemic inflammatory response syndrome) Additional Impressions: Right upper lobe pneumonia Right lower lobe pneumonia Admitting Information Admitting Physician Requests: Admit Condition: Stable Aric Cormier MD Nov 17, 2017 19:49
[2017-11-17 19:52] VITALS: PULSE 114; RESP 20; O2SAT 96
[2017-11-17] MEDS ORDERED: oxyCODONE/ACETAMINOPHEN 7.5 MG/325 MG TAB PO ONE (20:00)
[2017-11-17 20:01] LABS: ALBUMIN 3.1 GM/DL (3.4-5.0); ALKALINE PHOSPHATASE 150 U/L (45-117); ALT (GPT) 32 U/L (10-53); AST (GOT) 26 U/L (15-37); BLOOD UREA NITROGEN 6 MG/DL (7-18); CALCIUM 8.8 MG/DL (8.5-10.1); CHLORIDE 103 MEQ/L (98-107); CREATININE 0.47 MG/DL (0.50-1.00); GLOMERULAR FILTRATION RATE 161 ML/MIN (>89); GLUCOSE,RANDOM 83 MG/DL (74-106); SODIUM (NA) 138 MEQ/L (136-145); TOTAL BILIRUBIN ADULT 0.7 MG/DL (0.2-1.0); TOTAL PROTEIN 6.5 GM/DL (6.4-8.2)
[2017-11-17 20:13] VITALS: BP 128/87; PULSE 123; RESP 20; O2SAT 97
[2017-11-17] MEDS ORDERED: POTASSIUM CHLORIDE 20 MEQ CONTROLLED RELEASE TAB PO ONE (20:15)
[2017-11-17] MEDS ORDERED: SODIUM CHLOR 0.9% 1000 ML INJ 1,000 ML IV SCH (20:30)
[2017-11-17 20:52] LABS: BILIRUBIN, URINE NEG (NEG); BLOOD, URINE NEG (NEG); GLUCOSE,URINE NEG (NEG); KETONE, URINE NEG (NEG); NITRITE,URINE NEG (NEG); PH, URINE 6.5 (5.0-8.5); URINE COLOR YELLOW (YELLW/STRAW); URINE LEUKOCYTE ESTERASE TRACE (NEG)
[2017-11-17] MEDS ORDERED: IOHEXOL 350 MG/ML 10 ML VIAL (for RAD DIAG) IVCONTRAST ONE (21:03)
--- NOTE | 2017-11-17 21:04 | RADRPT ---
EXAM DATE/TIME: 11/17/2017 20:37 [facility] COMPARISON: CHEST SINGLE AP, November 17, 2017, 19:05. INDICATIONS : Fever, dyspnea, cough. Just finished 2 weeks of antibiotics for same thing IV CONTRAST: 73 cc Omnipaque 350 (iohexol) IV RADIATION DOSE: 5.48 CTDIvol (mGy) MEDICAL HISTORY : Lupus. SURGICAL HISTORY : None. ENCOUNTER: Initial ACUITY: 2 days PAIN SCALE: 3/10 LOCATION: chest TECHNIQUE: Volumetric scanning of the chest was performed using a pulmonary embolism protocol MIP images were re constructed. Using automated exposure control and adjustment of the mA and/or kV according to patien t size, radiation dose was kept as low as reasonably achievable to obtain optimal diagnostic quality images. DICOM format image data is available electronically for review and comparison. Follow-up recommendations for detected pulmonary nodules are based at a minimum on nodule size and pa tient risk factors according to Fleischner Society Guidelines. FINDINGS: PULMONARY ARTERIES: No filling defects are seen in the pulmonary arteries through the segmental level. LUNGS: There is no consolidation or pneumothorax . Patchy infiltrates right upper lobe posteriorly. Similar infiltrates right lower lobe No concerning pulmonary nodule is visualized. PLEURAE: There is no pleural thickening or pleural effusion. MEDIASTINUM: There is good visualization of the great vessels of the middle mediastinum. No evidence of mediastin al or hilar adenopathy/mass. MUSCULOSKELETAL: Within normal limits for patient age. MISCELLANEOUS: The visualized upper abdominal organs demonstrate no acute abnormality. CONCLUSION: 1. No evidence for pulmonary embolism. 2. Patchy infiltrates right upper lobe and right lower lobe. Terrence Day MD on November 17, 2017 at 21:00 Board Certified Radiologist. This report was verified electronically.
[2017-11-17 21:07] LABS: SQUAMOUS EPITHELIAL CELL URINE 0-5 /hpf (0-5); WBC, URINE 0-2 /hpf (0-5)
[2017-11-17 21:08] VITALS: PULSE 107; RESP 20; O2SAT 97
[2017-11-17 21:13] VITALS: TEMP 99.2
[2017-11-17] MEDS ORDERED: AZITHROMYCIN INJ 500 MG in SODIUM CHLOR 0.9% 250 ML INJ 250 ML IV ONE (21:15)
[2017-11-17] MEDS ORDERED: cefTRIAXone INJ 1,000 MG in SODIUM CHLORIDE 0.9% INJ 100 ML IV ONE (21:15)
[2017-11-17] MEDS ORDERED: BISACODYL 10 MG SUPP RECTAL PRN (21:30)
[2017-11-17] MEDS ORDERED: MAGNESIUM HYDROXIDE SUSP 30 ML CUP PO PRN (21:30)
[2017-11-17] MEDS ORDERED: RESP: ALBUTEROL 2.5 MG/IPRATROPIUM 0.5 MG NEB (PRN) NEB (21:30)
[2017-11-17] MEDS ORDERED: ACETAMINOPHEN/HYDROcodone 325 MG/5 MG TAB PO PRN (21:30)
[2017-11-17] MEDS ORDERED: SENNOSIDES 8.6 MG TAB PO PRN (21:30)
[2017-11-17] MEDS ORDERED: ONDANSETRON HCL 4 MG/2 ML VIAL IVP PRN (21:30)
[2017-11-17] MEDS ORDERED: SODIUM CHLORIDE 0.9% FLUSH 10 ML FLUSH IV FLUSH PRN (21:30)
[2017-11-17] MEDS ORDERED: LACTULOSE SYRUP 20 GM/30 ML CUP PO PRN (21:30)
[2017-11-17] MEDS ORDERED: ACETAMINOPHEN 325 MG TAB PO PRN (21:30)
[2017-11-17] MEDS: SODIUM CHLOR 0.9% 1000 ML INJ 1,000 ML IV SCH (21:58)
[2017-11-17] MEDS: ACETAMINOPHEN/HYDROcodone 325 MG/10 MG TAB PO PRN (22:43)
[2017-11-18] VITALS (7 sets, daily range): BP systolic 107–118; BP diastolic 62–83; PULSE 80–102; RESP 16–20; TEMP 97.7–98.3; O2SAT 95–100
--- NOTE | 2017-11-18 00:03 | EKG ---
Date Performed: 11/17/2017 Time Performed: 19:52:02 PTAGE: 26 years EKG: SINUS TACHYCARDIA POSSIBLE LEFT ATRIAL ENLARGEMENT POSSIBLE RIGHT VENTRICULAR CONDUCTION DE LAY ABNORMAL RHYTHM ECG PREVIOUS TRACING : 08/21/2010 20.06 Since the previous tracing, no significant change noted DOCTOR: Alex Menendez Interpretating Date/Time 11/18/2017 00:02:35
[2017-11-18] MEDS: ACETAMINOPHEN/HYDROcodone 325 MG/10 MG TAB PO PRN ×5 (02:57→20:12)
[2017-11-18 06:38] LABS: BASOPHIL # 0.1 TH/MM3 (0-0.2); BASOPHIL % 0.9 % (0.0-2.0); EOSINOPHIL # 0.1 TH/MM3 (0-0.4); EOSINOPHIL % 1.1 % (0.0-4.0); LYMPHOCYTE # 2.4 TH/MM3 (1.0-4.8); MEAN CELL VOLUME 84.8 FL (80.0-100.0); MEAN CORPUSCULAR HEMOGLOBIN 26.5 PG (27.0-34.0); MEAN CORPUSCULAR HGB CONC 31.2 % (32.0-36.0); MEAN PLATELET VOLUME 7.9 FL (7.0-11.0); MONO % 13.2 % (0.0-8.0); MONOCYTE # 1.2 TH/MM3 (0-0.9); NEUT % 57.8 % (16.0-70.0); PLATELET COUNT 203 TH/MM3 (150-450); RED BLOOD COUNT 3.78 MIL/MM3 (4.00-5.30); RED CELL DISTRIBUTION WIDTH 13.8 % (11.6-17.2); WHITE BLOOD COUNT 8.8 TH/MM3 (4.0-11.0)
[2017-11-18 07:19] LABS: ALBUMIN 2.4 GM/DL (3.4-5.0); ALKALINE PHOSPHATASE 118 U/L (45-117); ALT (GPT) 26 U/L (10-53); AST (GOT) 22 U/L (15-37); BICARBONATE 27.6 MEQ/L (21.0-32.0); BLOOD UREA NITROGEN 6 MG/DL (7-18); CALCIUM 8.4 MG/DL (8.5-10.1); CHLORIDE 112 MEQ/L (98-107); CREATININE 0.39 MG/DL (0.50-1.00); GLOMERULAR FILTRATION RATE 200 ML/MIN (>89); GLUCOSE,RANDOM 82 MG/DL (74-106); SODIUM (NA) 145 MEQ/L (136-145); TOTAL BILIRUBIN ADULT 0.4 MG/DL (0.2-1.0); TOTAL PROTEIN 5.3 GM/DL (6.4-8.2)
[2017-11-18] MEDS: SODIUM CHLOR 0.9% 1000 ML INJ 1,000 ML IV SCH ×2 (07:20→16:38)
[2017-11-18] MEDS ORDERED: POTASSIUM CHLORIDE 10 MEQ CONTROLLED RELEASE TAB PO ONE (08:00)
--- NOTE | 2017-11-18 09:25 | HHI.HP ---
HPI Service [facility] Primary Care Physician Non-Staff Admission Diagnosis Right upper lobe and right lower lobe pneumonia Diagnoses: Chief Complaint: Cough Travel History International Travel<30 Days: No Contact w/Intl Traveler <30 Da: No Traveled to Known Affected Are: No History of Present Illness 26-year-old white female being admitted for sepsis secondary to pneumonia Patient was in her usual state of health until sometime within the last 2 weeks when she came down with the cough and was treated for bronchitis with amoxicillin. She did have about the right eye erythema and drainage around that timeframe and also started taking her home eyedrops for it. Her cough was initially improving but then recurred 2 more intense nature with more phlegm production. Yesterday she did note a fever of 102 at home and thus decided come to the emergency department. Patient denies having nausea vomiting or diarrhea. She does note having some increased shortness of breath and does note having chest pain associated with coughing. She reports being compliant with her medicines. In the emergency department she was noted to have a fever of 102. Chest x-ray was performed which I independently reviewed and some very mild faint opacities scattered throughout the right lung field. I also independently reviewed the CT angiogram which is negative for pulmonary embolism but did note some patchy infiltrates in the right lung field. Patient was also noted to be hypokalemic in the ER. Blood cultures have been drawn and antibiotics were started. Review of Systems Except as stated in HPI: all other systems reviewed are Neg Past Family Social History Past Medical History Lupus Discoid rash Reynauds phenomenon Allergies: Coded Allergies: sulfamethoxazole (Unverified Allergy, Intermediate, HEADACHE ITCHING, 11/17) trimethoprim (Unverified Allergy, Intermediate, HEADACHE ITCHING, 11/17/17) vancomycin (Verified Allergy, Mild, Itching, 11/17/17) Family History Diabetes Social History Denies smoking, drinks socially and light, is disabled due to her medical illnesses, wants to go back to school but was told she would lose her disability she did Physical Exam Vital Signs Vital Signs Date Time Temp Pulse Resp B/P (MAP) Pulse Ox O2 Delivery O2 Flow Rate FiO2 11/18/17 08:17 98.0 90 18 111/64 (80) 97 11/18/17 07:58 11/18/17 06:45 98 16 111/70 (84) 99 Room Air 11/18/17 06:45 18 99 Room Air 11/18/17 03:00 92 18 112/67 (82) 97 Room Air 11/18/17 03:00 99 Room Air 11/18/17 00:00 102 18 107/62 (77) 100 Room Air 11/17/17 22:07 97 Room Air 11/17/17 21:13 99.2 11/17/17 21:09 20 11/17/17 21:08 107 20 97 Room Air 11/17/17 20:13 123 20 128/87 (101) 97 Room Air 11/17/17 19:52 114 20 96 Room Air 11/17/17 18:13 102.0 138 18 131/79 (96) 93 Physical Exam VS: afebrile GENERAL: Thin white female who appears older than her stated age SKIN: Diffuse scattered peeling rash over face chest and upper extremities which the patient affirms his chronic EYES: Right-sided conjunctivitis with no sharan drainage noted, left eye unremarkable ENT: No nasal bleeding or discharge. Mucous membranes pink and moist. CARDIOVASCULAR: Regular rate and rhythm. no murmurs RESPIRATORY: No accessory muscle use. Inspiratory crackles heard bilaterally GASTROINTESTINAL: Abdomen soft, non-tender, nondistended. Extremities: No clubbing, cyanosis, or edema. MUSCULOSKELETAL: adequate muscle bulk and tone for age and habitus NEUROLOGICAL: Awake and alert. No obvious cranial nerve deficits. No facial droop nor slurred speech noted. PSYCHIATRIC: Appropriate mood and affect; insight and judgment normal. Laboratory Laboratory Tests Test 11/17/17 19:15 11/17/17 19:50 11/17/17 20:30 11/18/17 06:20 White Blood Count 15.3 8.8 Red Blood Count 3.93 3.78 Hemoglobin 11.5 10.0 Hematocrit 32.7 32.0 Mean Corpuscular Volume 83.2 84.8 Mean Corpuscular Hemoglobin 29.3 26.5 Mean Corpuscular Hemoglobin Concent 35.2 31.2 Red Cell Distribution Width 14.4 13.8 Platelet Count 267 203 Mean Platelet Volume 8.3 7.9 Neutrophils (%) (Auto) 74.6 57.8 Lymphocytes (%) (Auto) 15.5 27.0 Monocytes (%) (Auto) 9.6 13.2 Eosinophils (%) (Auto) 0.1 1.1 Basophils (%) (Auto) 0.2 0.9 Neutrophils # (Auto) 11.4 5.0 Lymphocytes # (Auto) 2.4 2.4 Monocytes # (Auto) 1.5 1.2 Eosinophils # (Auto) 0.0 0.1 Basophils # (Auto) 0.0 0.1 CBC Comment DIFF FINAL DIFF FINAL Differential Comment Blood Urea Nitrogen 6 6 Creatinine 0.47 0.39 Random Glucose 83 82 Total Protein 6.5 5.3 Albumin 3.1 2.4 Calcium Level 8.8 8.4 Alkaline Phosphatase 150 118 Aspartate Amino Transf (AST/SGOT) 26 22 Alanine Aminotransferase (ALT/SGPT) 32 26 Total Bilirubin 0.7 0.4 Sodium Level 138 145 Potassium Level 2.8 3.0 Chloride Level 103 112 Carbon Dioxide Level 27.0 27.6 Anion Gap 8 5 Estimat Glomerular Filtration Rate 161 200 Lactic Acid Level 1.4 Human Chorionic Gonadotropin, Quant 1 Blood Gas Puncture Site LT RADIAL Blood Gas Patient Temperature 98.6 Blood Gas HCO3 27 Blood Gas Base Excess 3.4 Blood Gas Oxygen Saturation 93 Arterial Blood pH 7.49 Arterial Blood Partial Pressure CO2 35 Arterial Blood Partial Pressure O2 77 Arterial Blood Oxygen Content 14.0 Arterial Blood Carboxyhemoglobin 2.1 Arterial Blood Methemoglobin 1.2 Blood Gas Hemoglobin 10.6 Blood Gas Inspired Oxygen 21 Urine Color YELLOW Urine Turbidity CLEAR Urine pH 6.5 Urine Specific [place] LESS/EQUAL 1.005 Urine Protein NEG Urine Glucose (UA) NEG Urine Ketones NEG Urine Occult Blood NEG Urine Nitrite NEG Urine Bilirubin NEG Urine Urobilinogen 0.2 Urine Leukocyte Esterase TRACE Urine WBC 0-2 Urine Squamous Epithelial Cells 0-5 Microscopic Urinalysis Comment CULT NOT INDICATED Date/Time Source Procedure Growth Status 11/17/17 19:10 Blood Peripheral Aerobic Blood Culture Pending Received 11/17/17 19:10 Blood Peripheral Anaerobic Blood Culture Pending Received 11/17/17 19:15 Nasal Washing Influenza Types A,B Antigen ([facility]) - Final NEGATIVE FOR FLU A AND B ANTIGEN.... Complete Result Diagram: 11/18/17 0620 11/18/[address] Angiography 11/17/17 1933 Signed Impressions: Service Date/Time: Friday, November 17, 2017 20:37 - CONCLUSION: 1. No evidence for pulmonary embolism. 2. Patchy infiltrates right upper lobe and right lower lobe. Terrence Day MD Chest X-Ray 11/17/172 Signed Impressions: Service Date/Time: Friday, November 17, 2017 19:05 - CONCLUSION: No acute disease. Terrence Day MD Caprini VTE Risk Assessment Caprini VTE Risk Assessment: Mod/High Risk (score >= 2) Caprini Risk Assessment Model Point Value = 1 Point Value = 2 Point Value = 3 Point Value = 5 Age 41-60 Minor surgery BMI > 25 kg/m2 Swollen legs Varicose veins or History of unexplained or recurrent spontaneous Oral contraceptives or hormone replacement Sepsis (< 1 month) Serious lung disease, including pneumonia (< 1 month) Abnormal pulmonary function Acute myocardial infarction Congestive heart failure (< 1 month) History of inflammatory bowel disease Medical patient at bed rest Age 61-74 Arthroscopic surgery Major open surgery (> 45 min) Laparoscopic surgery (> 45 min) Malignancy Confined to bed (> 72 hours) Immobilizing plaster cast Central venous access Age >= 75 History of VTE Family history of VTE Factor V Leiden Prothrombin [id number] Lupus anticoagulant Anticardiolipin antibodies Elevated serum homocysteine Heparin-induced thrombocytopenia Other congenital or acquired thrombophilia Stroke (< 1 month) Elective arthroplasty Hip, pelvis, or leg fracture Acute spinal cord injury (< 1 month) Prophylaxis Regimen Total Risk Factor Score Risk Level Prophylaxis Regimen 0-1 Low Early ambulation 2 Moderate Order ONE of the following: *Sequential Compression Device (SCD) *Heparin 5000 units SQ BID 3-4 Higher Order ONE of the following medications: *Heparin 5000 units SQ TID *Enoxaparin/Lovenox 40 mg SQ daily (WT < 150 kg, CrCl > 30 mL/min) *Enoxaparin/Lovenox 30 mg SQ daily (WT < 150 kg, CrCl > 10-29 mL/min) *Enoxaparin/Lovenox 30 mg SQ BID (WT < 150 kg, CrCl > 30 mL/min) AND/OR *Sequential Compression Device (SCD) 5 or more Highest Order ONE of the following medications: *Heparin 5000 units SQ TID (Preferred with Epidurals) *Enoxaparin/Lovenox 40 mg SQ daily (WT < 150 kg, CrCl > 30 mL/min) *Enoxaparin/Lovenox 30 mg SQ daily (WT < 150 kg, CrCl > 10-29 mL/min) *Enoxaparin/Lovenox 30 mg SQ BID (WT < 150 kg, CrCl > 30 mL/min) AND *Sequential Compression Device (SCD) Assessment and Plan Assessment and Plan 26-year-old white female admitted for sepsis secondary to pneumonia Sepsis -Blood cultures drawn, IV fluids -Antibiotics as below Pneumonia -Continue azithromycin and Rocephin, no improvement in the next 24-48 hours we will consider consulting ID and expanding antibiotics given the patient's likely immunocompromised status Lupus/reynauds/discoid -Continue home prednisone and hydroxyurea and pentoxifylline -[place] for chronic joint pain Lovenox Physician Certification 2 Midnight Certification Type: Admission for Inpatient Services Order for Inpatient Services The services are ordered in accordance with Medicare regulations or non- Medicare payer requirements, as applicable. In the case of services not specified as inpatient-only, they are appropriately provided as inpatient services in accordance with the 2-midnight benchmark. Estimated LOS (days): 2 2 days is the estimated time the patient will need to remain in the hospital, assuming treatment plan goals are met and no additional complications. Post-Hospital Plan: Not yet determined Alden Jaffe MD Nov 18, 2017 09:25
[2017-11-18] MEDS: PENTOXIFYLLINE 400 MG CONTROLLED RELEASE TAB PO SCH ×3 (09:39→18:28)
[2017-11-18] MEDS: predniSONE 10 MG TAB PO SCH (09:41)
[2017-11-18] MEDS: DOCUSATE SODIUM 50 MG/SENNA 8.6 MG TAB PO SCH ×2 (09:41→20:11)
[2017-11-18] MEDS: HYDROXYCHLOROQUINE SULFATE 200 MG TAB PO SCH ×2 (09:41→20:12)
[2017-11-18] MEDS: SODIUM CHLORIDE 0.9% FLUSH 10 ML FLUSH IV FLUSH SCH ×2 (09:46→20:11)
[2017-11-18 15:46] LABS: CALCIUM 8.9 MG/DL (8.5-10.1)
[2017-11-18 15:47] LABS: BICARBONATE 25.7 MEQ/L (21.0-32.0)
[2017-11-18 15:50] LABS: CREATININE 0.43 MG/DL (0.50-1.00)
[2017-11-18] MEDS: ENOXAPARIN SODIUM 30 MG/0.3 ML SYRINGE SQ SCH (20:10)
[2017-11-18] MEDS: cefTRIAXone INJ 1,000 MG in SODIUM CHLORIDE 0.9% INJ 100 ML IV SCH (20:10)
[2017-11-18] MEDS ORDERED: guaiFENesin SOLUTION 200 MG/10 ML CUP PO ONE (21:30)
[2017-11-18] MEDS: AZITHROMYCIN INJ 500 MG in SODIUM CHLOR 0.9% 250 ML INJ 250 ML IV SCH (22:09)
[2017-11-19] VITALS (8 sets, daily range): BP systolic 94–138; BP diastolic 54–98; PULSE 66–99; RESP 16–20; TEMP 96.6–98.6; O2SAT 93–98
[2017-11-19] MEDS: ACETAMINOPHEN/HYDROcodone 325 MG/10 MG TAB PO PRN ×5 (00:33→22:28)
[2017-11-19] MEDS: SODIUM CHLOR 0.9% 1000 ML INJ 1,000 ML IV SCH ×3 (04:39→21:30)
[2017-11-19 06:22] LABS: CALCIUM 8.3 MG/DL (8.5-10.1)
[2017-11-19 06:26] LABS: CREATININE 0.3 MG/DL (0.50-1.00)
[2017-11-19] MEDS: SODIUM CHLORIDE 0.9% FLUSH 10 ML FLUSH IV FLUSH SCH ×2 (09:00→21:28)
[2017-11-19] MEDS: HYDROXYCHLOROQUINE SULFATE 200 MG TAB PO SCH ×2 (09:17→21:27)
[2017-11-19] MEDS: PENTOXIFYLLINE 400 MG CONTROLLED RELEASE TAB PO SCH ×3 (09:17→18:21)
[2017-11-19] MEDS: DOCUSATE SODIUM 50 MG/SENNA 8.6 MG TAB PO SCH ×2 (09:17→21:28)
[2017-11-19] MEDS: POLYMYXIN B EACH EYE SCH ×3 (12:21→22:28)
[2017-11-19] MEDS: BACITRACIN EACH EYE SCH ×3 (12:21→22:28)
--- NOTE | 2017-11-19 14:18 | HHI.PR ---
Subjective Remarks RN denies any deterioration since last night. Patient clears a little bit better than yesterday. Tolerating p.o. intake. Afebrile. Objective Vital Signs Date Time Temp Pulse Resp B/P (MAP) Pulse Ox O2 Delivery O2 Flow Rate FiO2 11/19/17 11:50 97.5 99 20 125/84 (98) 98 11/19/17 07:51 97.2 70 20 134/89 (104) 98 11/19/17 05:41 16 11/19/17 04:18 97.8 78 16 138/98 (111) 96 11/19/17 00:40 96.6 74 16 127/84 (98) 97 11/18/17 20:33 97.7 80 16 107/83 (91) 98 11/18/17 16:00 98.2 96 20 118/77 (91) 97 I/O 11/18/17 11/18/17 11/18/17 11/19/17 11/19/17 11/19/17 07:00 15:00 23:00 07:00 15:00 23:00 Intake Total 250 ml 2600 ml 1000 ml Balance 250 ml 2600 ml 1000 ml Intake Oral 1600 ml IV Total 250 ml 1000 ml 1000 ml # Voids 2 8 # Bowel Movements 1 Result Diagram: 11/18/17 0620 11/19/17 0555 Objective Remarks Coarse breath sounds bilaterally, unlabored breathing. no cyanosis A/P Assessment and Plan Sepsis -Blood cultures negative today, clinically improving, now afebrile Pneumonia -Continue azithromycin and Rocephin, no improvement in the next 24-48 hours we will consider consulting ID and expanding antibiotics given the patient's likely immunocompromised status Lupus/reynauds/discoid -Continue home prednisone and hydroxyurea and pentoxifylline -[place] for chronic joint pain Alden Rubin MD Nov 19, 2017 14:18
[2017-11-19] MEDS: ENOXAPARIN SODIUM 30 MG/0.3 ML SYRINGE SQ SCH (21:00)
[2017-11-19] MEDS: cefTRIAXone INJ 1,000 MG in SODIUM CHLORIDE 0.9% INJ 100 ML IV SCH (21:30)
[2017-11-19] MEDS: AZITHROMYCIN INJ 500 MG in SODIUM CHLOR 0.9% 250 ML INJ 250 ML IV SCH (22:28)
[2017-11-20] VITALS: BP 152/106; PULSE 82; RESP 20; TEMP 98.6; O2SAT 98
[2017-11-20] MEDS: ACETAMINOPHEN/HYDROcodone 325 MG/10 MG TAB PO PRN ×2 (03:45→08:18)
[2017-11-20] MEDS: BACITRACIN EACH EYE SCH (06:00)
[2017-11-20] MEDS: POLYMYXIN B EACH EYE SCH (06:00)
[2017-11-20] MEDS: DOCUSATE SODIUM 50 MG/SENNA 8.6 MG TAB PO SCH (08:18)
[2017-11-20] MEDS: predniSONE 10 MG TAB PO SCH (08:18)
[2017-11-20] MEDS: PENTOXIFYLLINE 400 MG CONTROLLED RELEASE TAB PO SCH (08:18)
[2017-11-20] MEDS: HYDROXYCHLOROQUINE SULFATE 200 MG TAB PO SCH (08:18)
[2017-11-20] MEDS: SODIUM CHLORIDE 0.9% FLUSH 10 ML FLUSH IV FLUSH SCH (08:19)
[2017-11-20] MEDS: SODIUM CHLOR 0.9% 1000 ML INJ 1,000 ML IV SCH (08:25)
[2017-11-20 09:05] VITALS: BP 133/73; PULSE 91; RESP 16; TEMP 97.6; O2SAT 96
--- NOTE | 2017-11-20 09:23 | HHI.DS ---
Discharge Summary Admission Date Nov 17, 2017 at 21:26 Discharge Date: November 20, 2017 Admitting Diagnosis Right upper lobe and right lower lobe pneumonia (1) Pneumonia ICD Codes: J18.9 - Pneumonia, unspecified organism Procedures See below. Brief History 26-year-old white female being admitted for sepsis secondary to pneumonia Patient was in her usual state of health until sometime within the last 2 weeks when she came down with the cough and was treated for bronchitis with amoxicillin. She did have about the right eye erythema and drainage around that timeframe and also started taking her home eyedrops for it. Her cough was initially improving but then recurred 2 more intense nature with more phlegm production. Yesterday she did note a fever of 102 at home and thus decided come to the emergency department. Patient denies having nausea vomiting or diarrhea. She does note having some increased shortness of breath and does note having chest pain associated with coughing. She reports being compliant with her medicines. In the emergency department she was noted to have a fever of 102. Chest x-ray was performed which I independently reviewed and some very mild faint opacities scattered throughout the right lung field. I also independently reviewed the CT angiogram which is negative for pulmonary embolism but did note some patchy infiltrates in the right lung field. Patient was also noted to be hypokalemic in the ER. Blood cultures have been drawn and antibiotics were started. CBC/BMP: 11/18/17 0620 11/19/17 0555 Significant Findings Laboratory Tests Test 11/17/17 19:15 11/17/17 19:50 11/17/17 20:30 11/18/17 06:20 White Blood Count 15.3 TH/MM3 (4.0-11.0) Red Blood Count 3.93 MIL/MM3 (4.00-5.30) 3.78 MIL/MM3 (4.00-5.30) Hemoglobin 11.5 GM/DL (11.6-15.3) 10.0 GM/DL (11.6-15.3) Hematocrit 32.7 % (35.0-46.0) 32.0 % (35.0-46.0) Neutrophils (%) (Auto) 74.6 % (16.0-70.0) Monocytes (%) (Auto) 9.6 % (0.0-8.0) 13.2 % (0.0-8.0) Neutrophils # (Auto) 11.4 TH/MM3 (1.8-7.7) Monocytes # (Auto) 1.5 TH/MM3 (0-0.9) 1.2 TH/MM3 (0-0.9) Blood Urea Nitrogen 6 MG/DL (7-18) 6 MG/DL (7-18) Creatinine 0.47 MG/DL (0.50-1.00) 0.39 MG/DL (0.50-1.00) Albumin 3.1 GM/DL (3.4-5.0) 2.4 GM/DL (3.4-5.0) Alkaline Phosphatase 150 U/L (45-117) 118 U/L (45-117) Potassium Level 2.8 MEQ/L (3.5-5.1) 3.0 MEQ/L (3.5-5.1) Blood Gas HCO3 27 mmol/L (22-26) Blood Gas Base Excess 3.4 mmol/L (-2-2) Arterial Blood pH 7.49 (7.380-7.420) Arterial Blood Partial Pressure CO2 35 mmHG (38-42) Blood Gas Hemoglobin 10.6 G/DL (12.0-16.0) Urine Leukocyte Esterase TRACE (NEG) Mean Corpuscular Hemoglobin 26.5 PG (27.0-34.0) Mean Corpuscular Hemoglobin Concent 31.2 % (32.0-36.0) Total Protein 5.3 GM/DL (6.4-8.2) Calcium Level 8.4 MG/DL (8.5-10.1) Chloride Level 112 MEQ/L (98-107) Test 11/18/17 15:18 11/19/17 05:55 Blood Urea Nitrogen 5 MG/DL (7-18) 5 MG/DL (7-18) Creatinine 0.43 MG/DL (0.50-1.00) 0.30 MG/DL (0.50-1.00) Random Glucose 162 MG/DL (74-106) Chloride Level 111 MEQ/L (98-107) 115 MEQ/L (98-107) Calcium Level 8.3 MG/DL (8.5-10.1) Potassium Level 3.2 MEQ/L (3.5-5.1) Imaging Last Impressions CT Angiography 4/1932 Signed Impressions: Service Date/Time: Friday, November 17, 2017 20:37 - CONCLUSION: 1. No evidence for pulmonary embolism. 2. Patchy infiltrates right upper lobe and right lower lobe. Terrence Day MD Chest X-Ray 11/17/17 1832 Signed Impressions: Service Date/Time: Friday, November 17, 2017 19:05 - CONCLUSION: No acute disease. Terrence Day MD Hospital Course 26-year-old white female admitted for sepsis secondary to pneumonia with sepsis. Blood cultures negative to date 3 days. Was given IV fluids and antibiotics azithromycin and ceftriaxone. Urine culture negative for Legionella and Streptococcus pneumonia. Influenza negative. Patient with history of lupus and Raynauds, continue home prednisone, hydroxyurea and pentoxifylline. [place] given for joint pain. 11/20/17 on examination today patient is much improved, no dyspnea or cough. All symptoms have resolved. Patient is doing well ambulating well. Urinating with no dysuria. Eating well with no nausea, vomiting, diarrhea or abdominal pain. Has been given [place] for generalized pain. IV antibiotics were continued , improvement has been seen. Discharged on p.o. antibiotics. Afebrile overnight. Blood pressure stable. Encouraged to follow-up with PCP and specialist for lupus. Upon discharge. Patient is stable at the time and agreeable to the plan. Pt Condition on Discharge: Stable Discharge Disposition: Discharge Home Discharge Instructions DIET: Follow Instructions for: As Tolerated, No Restrictions Speech Therapy-Diet Recommenda: Regular Activities you can perform: Regular-No Restrictions Follow up Referrals: PCP Follow-up - 1 Week New Medications: Amoxicillin (Amoxicillin) 875 Mg Tab 875 MG PO BID for Infection for 4 Days, #8 TAB 0 Refills Hydrocodone/Acetaminophen (Hydrocodone-Acetamin 5-325 mg) 5 Mg-325 Mg Tablet 1 TAB PO Q4H PRN for PAIN SCALE 3 TO 5 for 3 Days, #18 TAB Continued Medications: Hydroxychloroquine (Plaquenil) 200 Mg Tab 200 MG PO BID, #30 TAB 0 Refills Take with food Nicardipine (Nicardipine) 20 Mg Cap 10 MG PO DAILY, #60 CAP 0 Refills Pentoxifylline ER (Pentoxifylline ER) 400 Mg Tab 400 MG PO TID for Intermittent claudication, #90 TAB 0 Refills Prednisone (Prednisone) 10 Mg Tab 30 MG PO EVERY OTHER DAY, TAB 0 Refills Marysol Moore November 20, 2017 09:23
--- NOTE | 2017-11-20 09:23 | HHI.DCPOC ---
Discharge Care Plan Diagnosis: (1) Right upper lobe pneumonia Goals to Promote Your Health * To prevent worsening of your condition and complications * To maintain your health at the optimal level Directions to Meet Your Goals Take your medications as prescribed Follow your dietary instruction Follow activity as directed Keep your appointments as scheduled Take your immunizations and boosters as scheduled If your symptoms worsen call your PCP, if no PCP go to Urgent Care Center or Emergency Room Smoking is Dangerous to Your Health. Avoid second hand smoke Call the 24-hour hour crisis hotline for domestic abuse at Marysol Moore November 20, 2017 09:23
[2017-11-20] MEDS ORDERED: HYDR-3516 PO (09:27)
[2017-11-20] MEDS ORDERED: DOXY100C PO (09:27)
[2017-11-20] MEDS ORDERED: AMOX875T PO (09:28)
== END 2017-11-20 11:51 | disposition home or self-care (01) | DRG 871 ==
LOC: PHED 18:07 → PHEDA 21:26 → PHEDH 11-18 01:57 → PH3A 11-18 07:59
PROVIDERS: ADMIT Hospitalist; ATTEND Hospitalist
DX: A41.9 Sepsis, unspecified organism (principal); J18.9 Pneumonia, unspecified organism; D89.9 Disorder involving the immune mechanism, unspecified; L93.0 Discoid lupus erythematosus; I73.00 Raynaud's syndrome without gangrene; R21 Rash and other nonspecific skin eruption; E87.6 Hypokalemia; H10.9 Unspecified conjunctivitis; Z88.1 Allergy status to other antibiotic agents; Z88.2 Allergy status to sulfonamides
CPT/HCPCS: 36600; 71045; 71275; 80048; 80053; 81001; 82805; 83605; 84702; 84703; 85025; 87040; 87070; 87205; 87449; 87804; 93005; 96361; 96374; J0456; J0696; J1650; J2405; J7030; J7050; J7512; Q9967

== ENCOUNTER 2017-12-06 09:46 | Emergency (ER) | END 2017-12-06 13:52 | disposition home or self-care (01) | DX: J98.01 Acute bronchospasm (principal); M32.9 Systemic lupus erythematosus, unspecified; M06.9 Rheumatoid arthritis, unspecified | CPT/HCPCS: 71046; 80053; 82550; 82552; 83690; 83880; 84484; 85025; 85610; 85730; 93005; 94640; 94664; 96374; 99285; J1885 ==

== ENCOUNTER 2018-01-07 08:24 | Emergency (ER) | payer MEDICAID ==
[~2018-01-07] VITALS: Ht 149.9 cm; Wt 40.0 kg
[~2018-01-07 08:24] MED LIST changes: +ALBU6.7H INH; +CIPR-9 PO; -DOXY100C PO; +GUAISYP4 PO; +NICA20CA PO; -PERC5TAB12 PO
[2018-01-07 08:26] VITALS: BP 127/88; PULSE 104; RESP 20; TEMP 99.6; O2SAT 98
--- NOTE | 2018-01-07 08:51 | PD ---
HPI Chief Complaint: Cold / Flu Symptoms Time Seen by Provider: 08:32 Travel History International Travel<30 days: No Contact w/Intl Traveler<30days: No Traveled to known affect area: No History of Present Illness HPI 27-year-old female presents to the emergency department with 2 complaints. Her first complaint of cough that she has had since October, after being admitted for pneumonia, but has not really gone away and is worse now. Says she was also seen in mid November with continued cough and was given a azithromycin. She also reports throat irritation, nasal congestion, chest congestion, sinus pressure. Reports chest tightness, shortness of breath, wheezing. Reports fever of 102.3 this morning. Reports nausea without vomiting. Has been taking over-the- counter medications and cold and cough medications with minimal symptom management. Has also been taking ibuprofen and Tylenol for symptom management. Symptoms are mild to moderate in severity. No known aggravating or relieving factors. Her second complaint is left fourth toe pain, swelling, redness for 3 days. Has history of MRSA. Reports fever as above, but I feel that it is related to her cough/cold symptoms, rather than her toe. Her toenail is not present, and she states that it has not been there for a while, and was not related to an injury. Reports nausea without vomiting. Symptoms are mild to moderate in severity. She has been taking ibuprofen and Tylenol for symptom management. Constantly aggravated. Primary care provider is Dr. Pendleton. Allergies to sulfa. History of lupus and Raynauds syndrome. PFSH Past Medical History Asthma: No Autoimmune Disease: Yes (lupus, RA) Blood Disorders: No Anxiety: No Depression: No Cancer: No Cardiovascular Problems: Yes (Raynaud's disease) Chest Pain: No Diminished Hearing: No Endocrine: No Gastrointestinal Disorders: No Genitourinary: Yes Immune Disorder: Yes (lupus, RA) Implanted Vascular Access Dvce: No Musculoskeletal: No Neurologic: No Psychiatric: No Reproductive: Yes (never has had period) Respiratory: Yes (on occassion) Immunizations Current: No Sleep Apnea: No Tetanus Vaccination: > 5 Years Influenza Vaccination: No ?: Not Past Surgical History Abdominal Surgery: No Cardiac Surgery: No Ear Surgery: No Endocrine Surgery: No Eye Surgery: No Genitourinary Surgery: Yes (kidney biopsies) Gynecologic Surgery: No Neurologic Surgery: No Oral Surgery: No Thoracic Surgery: No Social History Alcohol Use: Yes (SOC) Tobacco Use: No Substance Use: No Allergies-Medications (Allergen,Severity, Reaction): Coded Allergies: sulfamethoxazole (Unverified Allergy, Intermediate, HEADACHE ITCHING, 12/06) trimethoprim (Unverified Allergy, Intermediate, HEADACHE ITCHING, 12/06/17) vancomycin (Verified Allergy, Mild, Itching, 12/06/17) Reported Meds & Prescriptions Reported Meds & Active Scripts Active Ventolin Hfa 18 GM Inh (Albuterol Sulfate) 90 Mcg/Act Aer 2 Puff INH Q4-6H PRN Clindamycin (Clindamycin HCl) 150 Mg Cap 300 Mg PO Q6H 10 Days Levofloxacin 750 Mg Tablet 750 Mg PO DAILY 10 Days Proventil Hfa 6.7 GM Inh (Albuterol Sulfate) 90 Mcg/Act Aer 2 Puff INH Q4-6H PRN Reported Percocet (Oxycodone-Acetaminophen) 10-325 mg Tab 1 Tab PO Q6H PRN Nicardipine (Nicardipine HCl) 20 Mg Cap 10 Mg PO DAILY Pentoxifylline ER (Pentoxifylline) 400 Mg Tab 400 Mg PO TID Plaquenil (Hydroxychloroquine Sulfate) 200 Mg Tab 200 Mg PO BID Take with food Prednisone 10 Mg Tab 30 Mg PO EVERY OTHER DAY Review of Systems Except as stated in HPI: all other systems reviewed are Neg Physical Exam Narrative GENERAL: Well-nourished, well-developed female patient, in no acute distress; afebrile, nontoxic-appearing SKIN: Warm and dry. No rash. HEAD: Atraumatic. Normocephalic. EYES: Pupils equal and round. No scleral icterus. No injection or drainage. ENT: Mucosa pink and moist. No erythema or exudates. No uvular edema. No uvular , palatal, or tonsillar deviation. Airway patent. EARS: Bilateral pinnae and external canals appear within normal limits. Bilateral tympanic membranes without erythema, dullness or perforation. NECK: Trachea midline. No lymphadenopathy. CARDIOVASCULAR: Regular rate and rhythm. No murmur appreciated. RESPIRATORY: No accessory muscle use. Right lower lobe with abnormal lung sounds and decreased lung sounds auscultated. No retractions or tachypnea. GASTROINTESTINAL: Abdomen soft, non-tender, nondistended. Hepatic and splenic margins not palpable. Bowel sounds are active 4 quadrants. MUSCULOSKELETAL: No obvious deformities. No clubbing. No cyanosis. No edema. NEUROLOGICAL: Awake and alert. Oriented 3. No obvious cranial nerve deficits. Motor grossly within normal limits. Normal speech. Moves all extremities. 5/5 strength to all extremities. PSYCHIATRIC: Appropriate mood and affect; insight and judgment normal. Data Data Last Documented VS Vital Signs Date Time Temp Pulse Resp B/P (MAP) Pulse Ox O2 Delivery O2 Flow Rate FiO2 01/07/18 08:26 99.6 104 20 127/88 (101) 98 Orders Orders Chest, Single Ap (01/07/18 08:51) Albuterol-Ipratropium Neb (Duoneb Neb) (01/07/18 09:00) Acetaminophen (Tylenol) (01/07/18 09:00) Ed Discharge Order (01/07/18 10:02) MDM Medical Decision Making Medical Screen Exam Complete: Yes Emergency Medical Condition: Yes Medical Record Reviewed: Yes Differential Diagnosis Pneumonia, bronchitis, viral illness, cellulitis Narrative Course 27-year-old female with suspected pneumonia of the right lower lung and cellulitis of the left fourth toe. Patient has low grade temp 99..6 and nontoxic-appearing in the ER. She reports T-max of 102.3 this morning. She has history of pneumonia and was hospitalized in October for this. 0954: Chest x-ray concluded: minimal parental changes right base suspicious for an early inflammatory process. I discussed the patient with Dr. Holm and she agrees with my plan of care and disposition. levofloxacin, clindamycin, Ventolin inhaler prescribed for home. Instructed patient to follow-up in 7-10 days for repeat chest x-ray for resolution of findings. Instructed patient to follow up with primary care provider. Patient verbalizes understanding and agreement with treatment plan. Patient is medically cleared and stable for discharge. Discussed reasons to return to the emergency department. Patient agrees with treatment plan. The patients vital signs are stable and the patient is stable for outpatient follow-up and treatment. Patient discharged home, stable and in no acute distress. Diagnosis Primary Impression: Pneumonia Qualified Codes: J18.1 - Lobar pneumonia, unspecified organism Additional Impression: Cellulitis of fourth toe, left Referrals: Primary Care Physician Patient Instructions: Cellulitis (ED), Community Acquired Pneumonia (ED), General Instructions Departure Forms: Tests/Procedures, Work Release Enter return to work date: Jan 10, 2018 Additional Instructions: Antibiotics as prescribed and complete full course Ibuprofen or Tylenol as directed and as needed to reduce fever; may alternate ibuprofen and Tylenol as needed every 3 hours to minimize fever Gvqj-[id number] cold/flu medications as directed and as needed for symptom management Get plenty of sleep/rest Drink plenty of fluids to prevent dehydration; such as Gatorade, Powerade, Pedialyte [place] diet to encourage nutrition such as crackers, fruit, applesauce, toast, soup etc. Use an air humidifier/turn off ceiling fans Follow-up with your primary care provider within 1 day Follow-up in 7-10 days for repeat chest x-ray for resolution Return immediately to the emergency department with worsening of symptoms Complete full course of antibiotics Warm Epsom salt soaks to the affected toe Keep area clean and dry Ibuprofen or Tylenol as directed and as needed for pain and inflammation Follow-up with primary care provider Return to emergency department immediately with worsening of symptoms Med/Other Pt SpecificInfo: Prescription(s) given Scripts Albuterol 18 GM Inh (Ventolin Hfa 18 GM Inh) 90 Mcg/Act Aer 2 PUFF INH Q4-6H Y for SOB/WHEEZING, #1 INHALER 0 Refills Prov: Trinity Pedroza 01/07/18 Clindamycin (Clindamycin) 150 Mg Cap 300 MG PO Q6H for Infection for 10 Days, #80 CAP 0 Refills Prov: Trinity Pedroza 01/07/18 Levofloxacin (Levofloxacin) 750 Mg Tablet 750 MG PO DAILY for Infection for 10 Days, #10 TAB 0 Refills Prov: Trinity Pedroza 01/07/18 Disposition: 01 DISCHARGE HOME Condition: Stable Trinity Pedroza Jan 07, 2018 08:51
[2018-01-07] MEDS ORDERED: ACETAMINOPHEN 325 MG TAB PO ONE (09:00)
[2018-01-07] MEDS ORDERED: RESP: ALBUTEROL 2.5 MG/IPRATROPIUM 0.5 MG NEB (SCH) INH ONE (09:00)
[2018-01-07] MEDS ORDERED: PERC10TA27 PO (09:16)
--- NOTE | 2018-01-07 09:51 | RADRPT ---
EXAM DATE: 01/07/2018 9:29 AM EDT AGE/SEX: 27 years / Female INDICATIONS: Short of breath, cough, and chest pain. CLINICAL DATA: This is the patient's initial encounter. Patient reports that signs and symptoms have been present for 1 day and indicates a pain score of 6/10. MEDICAL/SURGICAL HISTORY: Lupus. None. COMPARISON: [facility], CHEST SINGLE AP, 11/17/2017. . FINDINGS: Minimal parenchymal changes right base suspicious for inflammatory process. Left lung clear. The heart and pulmonary vascularity are normal. The portion of the bony skeleton visualized is unremarkable. CONCLUSION: Minimal parental changes right base suspicious for an early inflammatory process. Electronically signed by: Ben Kat MD 01/07/2018 9:49 AM EDT
[2018-01-07] MEDS ORDERED: CLIN150C14 PO (09:59)
[2018-01-07] MEDS ORDERED: LEVO750T3 PO (09:59)
[2018-01-07] MEDS ORDERED: VENTAER INH (09:59)
[2018-01-07 10:14] VITALS: BP 122/74; PULSE 104; RESP 24; O2SAT 95
== END 2018-01-07 10:50 | disposition home or self-care (01) ==
LOC: NEPD 08:24
DX: J18.1 Lobar pneumonia, unspecified organism (principal); L03.032 Cellulitis of left toe; M79.675 Pain in left toe(s); J02.9 Acute pharyngitis, unspecified; R09.81 Nasal congestion; R09.89 Other specified symptoms and signs involving the circulatory and respiratory systems; R06.02 Shortness of breath; R50.9 Fever, unspecified; R11.0 Nausea; I73.00 Raynaud's syndrome without gangrene; M32.9 Systemic lupus erythematosus, unspecified; M06.9 Rheumatoid arthritis, unspecified; Z88.1 Allergy status to other antibiotic agents; Z88.2 Allergy status to sulfonamides
CPT/HCPCS: 71045; 94664; 99283